=== PATIENT | male | born 1960 | race Caucasian/White ===

== ENCOUNTER → 2020-03-10 12:45 | Outpatient (CLI) | payer SELFPAY ==
--- NOTE | 2020-03-10 12:49 | US_ITS ---
APPROVED REPORT Exam Type: Lower Extremity Segmental Pressures Feather Renovator: Cierra Mcadams RVT Indications Claudication: Bilaterally Rest Pain: Bilaterally Current Smoker CLAUDICATION Risk Factors Hypertension Hyperlipidemia Current Smoker Pressures/Indices Right Indices Left Indices Brachial 124.00 mmHg Brachial 127.00 mmHg Low Thigh 101.00 mmHg 0.80 Low Thigh 64.00 mmHg 0.50 Calf 81.00 mmHg 0.64 Calf 67.00 mmHg 0.53 Ankle(PT) 100.00 mmHg 0.79 Ankle(PT) 62.00 mmHg 0.49 Ankle(DP) 78.00 mmHg 0.61 Ankle(DP) 58.00 mmHg 0.46 Digit 40.00 mmHg 0.31 Digit 28.00 mmHg 0.22 Findings RT ASIF:0.79 LT ASIF:0.49 RT TBI:0.31 LT TBI:0.22 DECREASED PULSES AT ALL LEVELS. DECREASED WAVEFORMS AT ALL LEVELS. Conclusion RT ASIF:0.79 LT ASIF:0.49 RT TBI:0.31 LT TBI:0.22 DECREASED PULSES AT ALL LEVELS. DECREASED WAVEFORMS AT ALL LEVELS. Moderate right and severe left arterial disease Electronically signed by : Zafar Smith MD 03/13/2020 16:59:15
== END ==
PROVIDERS: PCP Internal Medicine; Visit Provider Internal Medicine
DX: M79.605 Pain in left leg (principal); M79.604 Pain in right leg
CPT/HCPCS: 93923

== ENCOUNTER 2020-04-14 11:14 | Day surgery (SDC) | payer MEDICAID, SELFPAY ==
[2020-04-14] VITALS (10 sets, daily range): BP systolic 96–149; BP diastolic 60–93; PULSE 57–74; RESP 14–20; TEMP 36.6; O2SAT 97–98; BMI 21.4
--- NOTE | 2020-04-14 09:00 | IR_ITS ---
APPROVED REPORT Patient Location: Outpatient PROCEDURES Catheter placement in the abdominal aorta Abdominal aortography Repositioning of the catheter in the abdominal aorta Bilateral iliofemoral runoff INDICATION Abnormal ASIF 0.40.7 left and right respectively, Peripheral artery disease, [place] class III claudication Informed consent was obtained prior to the procedure. COMPLICATIONS none Estimated Blood Loss: less than 10 mls TECHNIQUE 1% lidocaine used anesthetize the right groin the right femoral artery was accessed via the Salinger technique and a 5 Swedish sheath was placed in the right femoral artery. The pigtail catheter was advanced into the abdominal aorta and abdominal aortography was performed. The catheter was then repositioned followed by bilateral iliofemoral runoff. At the end of the procedure the apparatus was removed the sheath was removed good hemostasis was achieved using manual pressure patient was transferred to the postop holding area in stable condition ANGIOGRAPHIC RESULTS The right renal artery singular and has a proximal 20% stenosis Left renal artery singular normal Mesenteric arteries are grossly normal The infrarenal abdominal aorta has a bilobed bar complex aneurysmal dilatation. The right common iliac artery has an ostial proximal 10 to 20% stenosis followed by a patent right external iliac artery with 30% stenoses. The right internal iliac artery has atheromatous plaque which is severe in the distal segment but is still patent. The right common femoral artery is small caliber but patent the right profunda femoris artery is patent the right superficial femoral artery is moderately atheromatous with diffuse 50 to 60% stenoses in its mid segment. It is then severely stenosed at Eugene's canal but does remain patent into the popliteal artery which has proximal 70% stenoses as well as mid vessel 70% stenoses. Distally there is two-vessel runoff from the anterior tibialis artery and the peroneal artery while the posterior tibialis artery is occluded The left common iliac artery is widely patent while the left internal iliac artery has 30% proximal stenoses with 80% distal stenoses. The left external iliac artery is widely patent with mild disease which extends into the common femoral artery. The stenoses are less than 10 to 20%. The left profunda femoris artery is normal. The left superficial femoral artery is severely diseased in its ostial and proximal segment with diffuse high-grade stenoses. At Eugene's canal the SFA is occluded and then reconstitutes in the mid popliteal level from 2 collaterals one from the SFA and one from the profunda femoris artery. The left popliteal artery is patent small caliber but has 50% mid vessel stenoses. Distally the posterior tibialis artery is widely patent the anterior tibialis artery is proximally occluded and the peroneal artery is patent in its proximal mid segment but terminates prior to entry into the left foot IMPRESSION Infrarenal abdominal aorta as described above Bilateral severe SFA stenoses and small caliber SFA vessels with severe diffuse disease as described above Two-vessel runoff below the knee on the right side 1-1/2 vessel runoff below the knee on the left side PLAN 1. Abdominal aortic ultrasound is required to specifically quantitate the size of the infrarenal abdominal aorta 2. I strongly recommend medical management at this time. Patient needs to stop tobacco usage and develop an aggressive risk factor modification and physical therapy protocol. 3. LDL less than 55 4. Recommend Xarelto 2.5 twice daily plus aspirin 81 mg daily 5. Although the bilateral SFA arteries can be percutaneously opened
[2020-04-14 11:40] LABS: Basophils % 0.4 % (0.1-2.0); Eosinophils # 0.2 K/mm3 (0.0-0.4); Eosinophils % 2.1 % (0.1-12.0); Hematocrit 43.2 % (42.0-52.0); Hemoglobin 14.5 g/dL (14.1-18.0); Lymphocytes # 2.1 K/mm3 (0.7-4.5); Lymphocytes % 21.4 % (10-50); Mean Corpuscular HGB Conc 33.7 g/dL (31.8-35.4); Mean Corpuscular Hemoglobin 31.1 pg (27.0-31.2); Mean Corpuscular Volume 92.4 fl (80-94); Mean Platelet Volume 8.8 fl (7.4-10.4); Monocytes # 0.7 K/mm3 (0.1-1.0); Monocytes % 7.1 % (1.7-9.3); Neutrophils # 6.9 K/mm3 (1.8-7.8); Platelet Count 217 K/mm3 (142-424); Red Blood Count 4.67 M/mm3 (4.60-6.20); Red Cell Distribution Width 13.8 % (11.5-17.5)
[2020-04-14 11:47] LABS: Blood Urea Nitrogen 12 mg/dl (9-20); Calcium 9.7 mg/dl (8.4-10.2); Carbon Dioxide 29 mmol/L (22.0-30.0); Chloride 101 mmol/L (98-107); Creatinine Clearance Estimated 70 mL/min (50-200); Estimated Glomerular Filt Rate 76 ml/min (>60); GFR (African American) 92 ML/MIN (>60); Glucose 135 mg/dl (74-100); Sodium 141 mmol/L (136-145)
== END 2020-04-14 15:09 | disposition home or self-care (01) ==
LOC: CATHLAB 11:14
PROVIDERS: PCP Internal Medicine; Visit Provider Internal Medicine
DX: I70.223 Atherosclerosis of native arteries of extremities with rest pain, bilateral legs (principal); R06.00 Dyspnea, unspecified; R94.31 Abnormal electrocardiogram [ECG] [EKG]; Z72.0 Tobacco use; I10 Essential (primary) hypertension; E78.5 Hyperlipidemia, unspecified; Z79.01 Long term (current) use of anticoagulants; Z79.82 Long term (current) use of aspirin
CPT/HCPCS: 36247; 75716; 80048; 85025; 99152; C1725; C1769; C1894; J1644; Q9966

== ENCOUNTER → 2020-04-19 07:58 | Outpatient (CLI) | payer MEDICAID, SELFPAY ==
--- NOTE | 2020-04-19 08:02 | US_ITS ---
PROCEDURE: US AORTA CLINICAL INDICATION: aorta aneurysm COMPARISON: CT ABDPELW CT ABD PELVIS W/ CONTRAST from 02/29/2016 XA CL BOLUS LEANNA AORTAGRAM BI from 04/14/2020 FINDINGS: There is fusiform dilatation of the mid and lower abdominal aorta measuring to 3 cm in maximum transverse diameter. There is calcific plaque present in the abdominal aorta along with mural thrombus.. Proximal common iliacs are unremarkable. IMPRESSION: 3 cm abdominal aortic aneurysm with mural thrombus and calcific plaque noted Consider CT a of aorta for more thorough evaluation. Dictated b Zafar Smith MD 04/19/2020 15:24 Zafar Smith MD in [place] 04/19/2020 15:24
== END ==
PROVIDERS: PCP Internal Medicine; Visit Provider Internal Medicine
DX: I71.9 Aortic aneurysm of unspecified site, without rupture (principal)
CPT/HCPCS: 76770

== ENCOUNTER → 2020-04-28 07:17 | Outpatient (CLI) | payer MEDICAID, SELFPAY ==
--- NOTE | 2020-04-28 | CA_ITS ---
APPROVED REPORT Exam: Pharmacologic Technologist: Apolonia Nascimento, Ht: 5 ft 8 in Wt: 141 lbs BSA: 1.76 m2 HR: 57 bpm BP: 133/74 mmHg Rhythm: SINUS TIFFANY,ST-T ABNS INFERIORLY AND LATERALLY Medical History Medical History: HTN, Hyperlipidemia Medications: Asa,,,,, Atorvastatin,,,,, Lisinopril/HCTZ,,,,, Plavix,,,,, Allergies: No known drug allergies Cardiac Risk Factors: HTN, Hyperlipidemia, Smoking Stress Test Details Test: LEXISCAN HR Resting HR: 59 bpm Max Heart Rate (APMHR): 159 bpm Max HR Achieved: 85 bpm Target HR (85% APMHR): 135 bpm % of APMHR: 53 Recovery HR: 73 bpm BP Resting BP: 133.0/74.0 mmHg Max BP: 137.0/65.0 mmHg Recovery BP: 130.0/59.0 mmHg ECG Resting ECG: SINUS TIFFANY,ST-T ABNS INFERIORLY AND LATERALLY Clinical Exercise duration: 04:23 min Highest Stage Achieved: Stress ECG Conclusion DURING INFUSION PATIENT HAD SOA AND MALAISE. NO CHEST PAIN. NO ARRHYTHMIAS/ECTOPY. NO SIGNIFICANT ST-T CHANGES. UNREMARKABLE LEXISCAN STRESS. MYOVIEW IMAGES REPORTED SEPARATELY Test Summary REST . . . . . . . Sitting REST 07:25 . . 59 . 133/ 74 . . Stage 1 . . . . . . . Cardiolite injected Stage 1 01:00 . . 77 . . . . Stage 2 01:00 . . 83 . 134/ 66 . . Stage 3 01:00 . . 79 . 137/ 65 . . Stage 4 01:00 . . 79 . 121/ 70 . . Stage 4 01:23 . . 71 . 120/ 71 . Stop exercise at 04:23 RECOVERY 01:00 . . 73 . . . . RECOVERY 02:00 . . 72 . 130/ 59 . . RECOVERY 03:00 . . 68 . 127/ 55 . . RECOVERY 04:00 . . 66 . 117/ 59 . . RECOVERY 04:13 . . 66 . 117/ 59 . . Electronically signed by : Rik Varela, 04/28/2020 12:02:18
--- NOTE | 2020-04-28 07:18 | NM_ITS ---
APPROVED REPORT Exam: Nuclear Stress Test Indication: HTN, HYPERLIPIDEMIA, TOB USE, SOB, FATIGUE Patient Location: Outpatient Stress Tech: Jamila Azam CT Tech:Bouchra Maurer ENEIDA RT (R)(N)(M) Ht: 5 ft 8 in Wt: 145 lbs HR: 57 bpm BP: 133/74 mmHg BSA: 1.78 m2 BMI: 22.0 History: HTN, HYPERLIPIDEMIA, TOB USE, SOB, FATIGUE Procedure: Patient received a 0.4 mg of intravenous Lexiscan, resting heart rate 57 bpm, resting blood pressure 133/74 mmHg, with Lexiscan maximum heart rate achived was 84 bpm which is Less than 85 % of the maximum predicted heart rate and blood pressure was 134/66 mmHg. With Lexiscan, patient denied any complaint of chest pain. Electrocardiogram Resting electrocardiogram showed sinus rhythm nonspecific ST-T changes, with Lexiscan there is less than 1.[address] segment depression noted from the baseline EKG. The EKG portion of the Lexiscan is nondiagnostic. Cardiac Stress and Resting SPECT Images: Cardiac Stress and Resting SPECT images were obtained using technetium 99m Myoview 31.3 mCi stress and 10.03 mCi at rest. Gated SPECT for analysis of segmental wall motion and calculation of the ejection fraction also done. Cardiac stress and resting SPECT images show decreased tracer activity in the inferior and inferior apical wall which improves on the resting images suggestive of reversible ischemia, computer derived ejection fraction is 64% with no regional wall motion abnormality, right ventricle is normal size and contractility. Conclusion: 1. The EKG portion of the Lexiscan is nondiagnostic. 2. Scintigraphic evidence of reversible ischemia involving the inferior and inferior apical wall, computer derived ejection fraction is 64% with no regional wall motion abnormality, right ventricle is normal size and contractility. 3. Abnormal Lexiscan Myoview study. Electronically signed by : Rik Varela, 04/28/2020 12:06:43
--- NOTE | 2020-04-28 08:03 | CA_ITS ---
APPROVED REPORT EXAM: Comprehensive 2D, Doppler, and color-flow Echocardiogram Fusion Juncture Grinder: Cierra Mcadams RVT Ht: 5 ft 8 in Wt: 141lbs BSA: 1.76 BP: 131/57 mmHg Indications: SOA,HTN,HLD,SMOKER,ABN EKG,PVD Echo Enhancing Agent Indication: Endocardial border delineation Agent(s) / Amount(s) Used: Definity 1 cc 2D Dimensions LVOT 1.63 cm (M/F) 1.5-2.5 M-Mode Dimensions RVDd 2.63 cm (0.9-2.6) LVDd 3.90 cm (3.5-5.7) LVDs 1.40 cm (3.5-5.7) IVSd 1.06 cm (0.6-1.1) PWd 0.81 cm (0.6-1.1) EF (Teich) 92.30% FS 64.10% EDV (Teich) 65.90 mL ESV (Teich) 5.10 mL LV Diastology E/A Ratio 0.90 Mitral Valve MV A Velocity 91.00 (40-130 cm/s) Left Ventricle Left atrium is mildly enlarged, left ventricle is normal size, mild concentric left ventricular hypertrophy, visually estimated ejection fraction 55% with no regional wall motion abnormality, grade 1 diastolic dysfunction seen without tissue Doppler evidence of raise left atrial pressure. Right Ventricle Right atrium and right ventricular normal size and contractility. Aortic Valve Valve is thickened and calcified without aortic stenosis or aortic insufficiency. Mitral Valve Mitral valve is minimally thickened, there is no mitral stenosis, there is mild mitral regurgitation. Tricuspid Valve Tricuspid valve is grossly normal, there is mild tricuspid regurgitation, tricuspid regurgitation jet velocity is inadequate for calculation of the right ventricular systolic pressure. Pulmonic Valve Pulmonic valve is poorly visualized. Great Vessels Aortic root is normal size. Pericardium No significant pericardial effusion noted. Conclusion 1. Mildly enlarged left atrium, normal left ventricular size, mild concentric left ventricular hypertrophy, visually estimated ejection fraction 55% with no regional wall motion abnormality, grade 1 diastolic dysfunction seen without tissue Doppler evidence of raise left atrial pressure. 2. Thickened and calcified aortic valve without aortic stenosis or aortic insufficiency. 3. Mild mitral and tricuspid regurgitation. 4. No significant pericardial effusion noted. Electronically signed by : Rik Varela, 04/28/2020 13:41:14
== END ==
PROVIDERS: PCP Internal Medicine; Visit Provider Urology
DX: R06.00 Dyspnea, unspecified (principal); R94.31 Abnormal electrocardiogram [ECG] [EKG]; I73.9 Peripheral vascular disease, unspecified; R68.89 Other general symptoms and signs; Z72.0 Tobacco use
CPT/HCPCS: 78452; 93017; 93306; A9502; J2785; Q9957

== ENCOUNTER → 2020-05-03 10:05 | Outpatient (CLI) | payer MEDICAID, SELFPAY ==
--- NOTE | 2020-05-03 10:05 | CT_ITS ---
Procedure: CT ANGIO ABDOMEN CLINICAL HISTORY: AAA AAA SOA,,HX OF DVT'S COMPARISON: CT ABDPELW CT ABD PELVIS W/ CONTRAST from 02/29/2016 TECHNIQUE: IV Contrast: 100ml Optiray 350 Axial images obtained with sagittal and coronal reformats. All CT scans at the facility use one or more dose reduction, viz: automated exposure control, ma/kV adjustment per patient size (including targeted exams where dose is matched to indication, i.e. head), or iterative reconstruction technique. FINDINGS: There is a infrarenal abdominal aortic aneurysm. This measures up to 2.8 cm transverse and 2.3 cm AP there is mild amount of mural thrombus with some ulceration of the thrombus within the abdominal aortic aneurysm. The aneurysm ends at the bifurcation. No aneurysmal dilatation of the common iliacs. No retroperitoneal hemorrhage. The celiac and SMA have an unremarkable appearance. Calcific plaque is present at the ostium of the right renal artery but no significant stenosis is evident. The left renal artery has an unremarkable appearance. There are post cholecystectomy changes. The left adrenal gland is slightly enlarged but maintains an adrenal form shape. There is mild gaseous distention of the transverse colon and a moderate amount of retained colonic feces in the cecum and ascending colon. IMPRESSION: 2.8 cm infrarenal abdominal aortic aneurysm with a moderate amount of mural thrombus and scattered areas of ulceration within the thrombus. Dictated by: Zafar Smith MD 05/05/2020 11:39 Zafar Smith MD in [facility] 05/05/2020 11:39
[2020-05-03 10:57] LABS: Blood Urea Nitrogen 16 mg/dl (9-20); Estimated Glomerular Filt Rate 68 ml/min (>60); GFR (African American) 82 ML/MIN (>60)
== END ==
PROVIDERS: PCP Internal Medicine; Visit Provider Urology
DX: I71.4 Abdominal aortic aneurysm, without rupture (principal)
CPT/HCPCS: 36415; 74175; 82565; 84520; Q9967

== ENCOUNTER 2020-05-16 08:06 | Day surgery (SDC) | payer MEDICAID, SELFPAY ==
[2020-05-16] VITALS (18 sets, daily range): BP systolic 88–172; BP diastolic 51–90; PULSE 50–70; RESP 16–20; TEMP 36.5–36.8; O2SAT 92–100; BMI 21.7
--- NOTE | 2020-05-16 | IR_ITS ---
APPROVED REPORT Patient Location: Outpatient Financial Planning Assistant: ENEIDA Maki RT (R) PROCEDURES Left heart catheterization Left ventriculogram Selective coronary angiogram INDICATION Angina pectoris class III, Coronary artery disease, Abnormal Myoview Informed consent was obtained prior to the procedure. COMPLICATIONS NONE Estimated Blood Loss: LESS THAN 10 MLS TECHNIQUE One percent lidocaine used to anesthetize the right anterior aspect of the wrist. The right radial artery was accessed via the Seldinger technique. A 6 Turkish sheath was placed in the right radial artery. 2.5 mg of verapamil, 800 mcg of nitroglycerin, 1mg Lidocaine and 5000 U Heparin were given through the arterial sheath. The trap catheter was also used to perform left heart catheterization, left ventriculogram and selective coronary angiogram. At the end of the procedure the sheath was removed good hemostasis was achieved using Traclet band, patient was transferred to the postop holding area in stable condition. ANGIOGRAPHIC RESULTS The left main artery Has an ostial 80% stenosis and a distal 30% stenosis The left anterior descending artery Has proximal 80% stenosis mid vessel 80% stenosis followed by a mid vessel 90% stenosis. Large first diagonal artery has mild to moderate [id number] 20 to 30% plaque The circumflex artery Is nondominant giving rise to a solitary obtuse marginal artery which has a 50% mid vessel stenosis The right coronary artery Is dominant ostially occluded and fills via [id number] collaterals The BARRIOS ventriculogram reveals Normal 65% The left ventricular end-diastolic pressure 10 mmHg IMPRESSION Severe three-vessel coronary disease as described above Normal ejection fraction Normal left ventricular end-diastolic pressure PLAN 1. Patient will be referred to [facility] for CABG this week 2. Continue aggressive risk factor modification Electronically signed by : Maynor Rhoades, 05/16/2020 11:49:23
[2020-05-16 08:48] LABS: Basophils % 0.4 % (0.1-2.0); Eosinophils # 0.3 K/mm3 (0.0-0.4); Eosinophils % 3.6 % (0.1-12.0); Hematocrit 44.1 % (42.0-52.0); Hemoglobin 14.8 g/dL (14.1-18.0); Lymphocytes % 26.6 % (10-50); Mean Corpuscular HGB Conc 33.5 g/dL (31.8-35.4); Mean Corpuscular Hemoglobin 30.9 pg (27.0-31.2); Mean Corpuscular Volume 92.2 fl (80-94); Mean Platelet Volume 8.3 fl (7.4-10.4); Monocytes # 0.7 K/mm3 (0.1-1.0); Monocytes % 9.7 % (1.7-9.3); Neutrophils # 4.5 K/mm3 (1.8-7.8); Neutrophils % 59.7 % (37.0-80.0); Platelet Count 218 K/mm3 (142-424); Red Blood Count 4.79 M/mm3 (4.60-6.20); Red Cell Distribution Width 12.7 % (11.5-17.5); White Blood Count 7.5 K/mm3 (4.8-10.8)
[2020-05-16 08:54] LABS: Chloride 102 mmol/L (98-107); Potassium 3.7 mmoL/L (3.5-5.1); Sodium 142 mmol/L (136-145)
[2020-05-16 08:56] LABS: Blood Urea Nitrogen 14 mg/dl (9-20); Creatinine Clearance Estimated 55 mL/min (50-200); Estimated Glomerular Filt Rate 56 ml/min (>60); GFR (African American) 68 ML/MIN (>60)
[2020-05-16 08:57] LABS: Anion Gap 13.7 mEq/L (5-15); Calcium 9.8 mg/dl (8.4-10.2); Carbon Dioxide 30 mmol/L (22.0-30.0); Glucose 139 mg/dl (74-100)
[2020-05-16 09:15] LABS: Coronavirus 19 IgG Antibody Negative (Negative); Coronavirus 19 IgM Antibody Negative (Negative)
--- NOTE | 2020-05-16 17:56 | PC.NURSE ---
PATIENT A7O X4, LUNGS CLEAR, PULSES EQUAL. RADIAL CATH SITE, CLEAN, DRY AND INTACT. PATIENT ATE DINNER AND TOLERATED WELL. AWAITING BED AT . NO OTHER CONCERNS AT THIS TIME.
--- NOTE | 2020-05-16 20:53 | PC.NURSE ---
PT A&OX4. NO C/O THUS FAR. TOLERATING RA WELL. UP INDEPENDENTLY IN ROOM. REPORT CALLED TO [facility] AT [facility]. SHALONDA CALLED AT THIS TIME. WILL CONTINUE TO MONITOR PT.
--- NOTE | 2020-05-16 20:56 | PC.NURSE ---
[facility] NOTIFIED OF TRANSFER OF THIS PT TO [facility].
--- NOTE | 2020-05-16 21:27 | PC.NURSE ---
patient left with [facility] @ 21:27.
== END 2020-05-16 21:27 | disposition short-term general hospital (02) ==
LOC: CATHLAB 08:07 → 2ND 14:15
PROVIDERS: PCP Internal Medicine; Visit Provider Internal Medicine
DX: I25.118 Atherosclerotic heart disease of native coronary artery with other forms of angina pectoris (principal); I10 Essential (primary) hypertension; I70.203 Unspecified atherosclerosis of native arteries of extremities, bilateral legs; Z72.0 Tobacco use; Z79.82 Long term (current) use of aspirin; Z79.02 Long term (current) use of antithrombotics/antiplatelets; Z79.899 Other long term (current) drug therapy
CPT/HCPCS: 80048; 85025; 86328; 93458; 99152; C1725; C1769; J1644; Q9967

== ENCOUNTER → 2020-07-11 15:23 | Outpatient (CLI) | payer MEDICAID, SELFPAY ==
[2020-07-11 16:21] LABS: Blood Urea Nitrogen 12 mg/dl (9-20); Estimated Glomerular Filt Rate 62 ml/min (>60); GFR (African American) 74 ML/MIN (>60)
== END ==
PROVIDERS: Visit Provider Internal Medicine
DX: Z01.818 Encounter for other preprocedural examination (principal)
CPT/HCPCS: 36415; 82565; 84520

== ENCOUNTER → 2020-07-12 13:15 | Outpatient (CLI) | payer MEDICAID, SELFPAY ==
--- NOTE | 2020-07-12 13:16 | CT_ITS ---
Procedure: CT ANGIO NECK CLINICAL HISTORY: Carotid artery disease, carotid artery stenosis COMPARISON: No exams were available for comparison TECHNIQUE: IV Contrast: 100ml Optiray 350 Axial images obtained with sagittal and coronal reformats. All CT scans at the facility use one or more dose reduction, viz: automated exposure control, ma/kV adjustment per patient size (including targeted exams where dose is matched to indication, i.e. head), or iterative reconstruction technique. FINDINGS: There has been a prior CABG. The origin of the great vessels have an unremarkable appearance. There is some eccentric soft plaque within the aortic arch laterally there is 50 percent stenosis involving the proximal left subclavian artery. Right common carotid: Unremarkable. There is a severe mount of calcific plaque at the ostium of the right ICA of approximately 90 percent. There is a small amount of eccentric calcific plaque just cephalad to this region causing approximately 20 percent stenosis. The upper cervical portion of the right carotid is unremarkable. Calcific plaque is present involving the cavernous portion of the right ICA but without significant stenosis. The left common carotid is unremarkable. Calcific plaque is present in the left bulb and proximal ICA with 60 percent stenosis of the ostium of the left ICA the. The ICA cephalad to this region is unremarkable. Calcific plaque is present within the cavernous portion of the left ICA without significant stenosis. There is 60 percent smooth segment stenosis of vomiting the ostium of the right vertebral artery. 50 percent stenosis involves the ostium of the left vertebral artery. Nonvascular prior CABG. Scattered small nodes are present in the neck. IMPRESSION: 1. Severe stenosis of the ostium of the right ICA the 90 percent secondary to calcific plaque 2. Moderate to severe stenosis of the left ICA of 60 percent 3. 60 percent stenosis of the ostium of the right vertebral and 50 percent stenosis of the ostium of the left vertebral. 4. Eccentric soft plaque is present in the aortic arch laterally Dictated by: Zafar Smith MD 07/13/2020 12:22 Zafar Smith MD in [facility] 07/13/2020 12:22
== END ==
PROVIDERS: PCP Internal Medicine; Visit Provider Urology
DX: R06.00 Dyspnea, unspecified (principal); I65.23 Occlusion and stenosis of bilateral carotid arteries; I73.9 Peripheral vascular disease, unspecified; I25.10 Atherosclerotic heart disease of native coronary artery without angina pectoris; E78.5 Hyperlipidemia, unspecified; I10 Essential (primary) hypertension; Z72.0 Tobacco use; Z95.1 Presence of aortocoronary bypass graft
CPT/HCPCS: 70498; Q9967

== ENCOUNTER → 2020-07-14 13:53 | Outpatient (CLI) | payer MEDICAID, SELFPAY ==
[2020-07-14 14:32] LABS: Basophils # 0.1 K/mm3 (0-0.2); Basophils % 0.7 % (0.1-2.0); Eosinophils # 0.2 K/mm3 (0.0-0.4); Eosinophils % 3.4 % (0.1-12.0); Hematocrit 46.6 % (42.0-52.0); Hemoglobin 14.6 g/dL (14.1-18.0); Lymphocytes # 2.1 K/mm3 (0.7-4.5); Lymphocytes % 29.1 % (10-50); Mean Corpuscular HGB Conc 31.4 g/dL (31.8-35.4); Mean Corpuscular Hemoglobin 28.2 pg (27.0-31.2); Mean Corpuscular Volume 89.8 fl (80-94); Mean Platelet Volume 8.6 fl (7.4-10.4); Monocytes # 0.7 K/mm3 (0.1-1.0); Monocytes % 10.3 % (1.7-9.3); Neutrophils % 56.5 % (37.0-80.0); Platelet Count 165 K/mm3 (142-424); Red Blood Count 5.19 M/mm3 (4.60-6.20); Red Cell Distribution Width 13.2 % (11.5-17.5); White Blood Count 7.1 K/mm3 (4.8-10.8)
[2020-07-14 15:28] LABS: Anion Gap 13.5 mEq/L (5-15); Blood Urea Nitrogen 11 mg/dl (9-20); Calcium 9.9 mg/dl (8.4-10.2); Carbon Dioxide 32 mmol/L (22.0-30.0); Chloride 101 mmol/L (98-107); Estimated Glomerular Filt Rate 56 ml/min (>60); GFR (African American) 68 ML/MIN (>60); Glucose 153 mg/dl (74-100); Potassium 4.5 mmoL/L (3.5-5.1); Sodium 142 mmol/L (136-145)
[2020-07-14 16:33] LABS: Coronavirus 19 IgG Antibody Negative (Negative); Coronavirus 19 IgM Antibody Negative (Negative)
== END ==
PROVIDERS: Visit Provider Internal Medicine
DX: Z01.818 Encounter for other preprocedural examination (principal); I25.10 Atherosclerotic heart disease of native coronary artery without angina pectoris
CPT/HCPCS: 36415; 80048; 85025; 86328

== ENCOUNTER 2020-07-17 09:03 | Day surgery (SDC) | payer MEDICAID, SELFPAY ==
[2020-07-17] VITALS (20 sets, daily range): BP systolic 95–148; BP diastolic 53–92; PULSE 50–64; RESP 16–19; TEMP 36.8; O2SAT 97–100; BMI 20.9
--- NOTE | 2020-07-17 07:12 | IR_ITS ---
APPROVED REPORT Patient Location: Outpatient PROCEDURES Catheter placement in the right vertebral artery Right vertebral artery selective angiogram Catheter placement in the left vertebral artery Left vertebral artery selective angiogram Catheter placement left subclavian artery Selective left subclavian artery angiogram Catheter placement in the right carotid artery Right internal carotid artery selective angiogram Catheter placed in the left carotid artery Left internal carotid artery selective angiogram Right intracerebral carotid artery angiogram Left intracerebral carotid artery angiogram INDICATION Severe carotid artery stenosis, Preoperative evaluation for carotid artery revascularization, History of coronary bypass surgery with known LEVY graft to the LAD, Left subclavian artery stenosis Informed consent was obtained prior to the procedure. COMPLICATIONS NONE Estimated Blood Loss: LESS THAN 10 ML TECHNIQUE One percent lidocaine was used to anesthetize the right groin. The right femoral artery was accessed via the Seldinger technique. A 5-Maltese sheath was placed in the right femoral artery. The JR-4 catheter was used to cannulate the above arteries and perform selective and indirect angiography. At the end of the procedure the apparatus was removed the patient transferred to the postop holding area in stable condition for sheath removal. ANGIOGRAPHIC RESULTS The right vertebral artery has an ostial 40% stenosis but is otherwise widely patent with excellent antegrade flow into the basilar artery The left vertebral artery has an ostial 30 to 40% stenosis but is otherwise widely patent with excellent antegrade flow into the basilar artery Right common carotid artery is widely patent and gives rise to the right internal carotid artery which has an ostial proximal 90% stenosis. Right intracerebral arteries are free of atherosclerotic plaque or aneurysmal dilatation Left common carotid artery is widely patent and gives rise to the left internal carotid artery which has a proximal 50% stenosis Left intracerebral arteries are free of atherosclerotic plaque or aneurysmal dilatation Left subclavian artery has an eccentric 60% plaque/stenosis IMPRESSION Severe right internal carotid artery stenosis Mild bilateral vertebral artery stenosis as described above Severe left subclavian artery stenosis which is proximal to the takeoff of the left internal mammary artery which supplies the LAD PLAN 1. Patient should be brought back to the [facility] and scheduled for left subclavian artery stenting prior to undergoing right internal carotid artery revascularization 2. Avoidance of tobacco products 3. LDL less than 55 4. Control of associated risk factors Electronically signed by : Maynor Rhoades, 07/17/2020 10:22:35
== END 2020-07-17 13:44 | disposition home or self-care (01) ==
LOC: CATHLAB 09:04
PROVIDERS: PCP Internal Medicine; Visit Provider Internal Medicine
DX: I25.10 Atherosclerotic heart disease of native coronary artery without angina pectoris (principal); Z95.1 Presence of aortocoronary bypass graft; I65.23 Occlusion and stenosis of bilateral carotid arteries; Z79.01 Long term (current) use of anticoagulants; Z72.0 Tobacco use; I70.222 Atherosclerosis of native arteries of extremities with rest pain, left leg; I65.03 Occlusion and stenosis of bilateral vertebral arteries; Z79.899 Other long term (current) drug therapy
CPT/HCPCS: 36224; 36228; 99152; C1725; C1769; C1894; J1644; Q9967

== ENCOUNTER 2020-07-20 09:09 | Day surgery (SDC) | payer MEDICAID, SELFPAY ==
[2020-07-20] VITALS (36 sets, daily range): BP systolic 128–188; BP diastolic 57–100; PULSE 47–66; RESP 16–20; TEMP 36.8; O2SAT 95–100; BMI 21.2
--- NOTE | 2020-07-20 | IR_ITS ---
APPROVED REPORT Patient Location: Outpatient PROCEDURES Stent deployment to the left subclavian artery INDICATION Left subclavian artery stenosis, History of coronary bypass surgery with patent LEVY to the LAD distal to the left subclavian artery stenosis Informed consent was obtained prior to the procedure. COMPLICATIONS none Estimated Blood Loss: less than 10 mls TECHNIQUE 1% lidocaine used anesthetize the right groin the right femoral artery was accessed via the Salinger technique and a long angled 7 Vietnamese sheath was placed in the right femoral artery. Therapeutic heparin was administered. Was used to cannulate the left subclavian artery and the wire was placed distally. An 8 mm x 27 mm balloon mounted bare-metal stent was deployed at 12 jyoti reducing the severe stenosis to less than 10%. Excellent angiographic results were obtained at the end of the procedure the apparatus was removed the patient was transferred to the postop holding her stable condition for postoperative care and sheath removal IMPRESSION Severe left subclavian artery stenosis with a patent LEVY distal to the stenosis Successful stenting of the left subclavian artery severe disease reduced to less than 10% with 1 bare-metal stent PLAN 1. Dual antiplatelet therapy for 1 month for bare-metal stent placement 2. Continue risk factor modification 3. LDL less than 55 4. Patient will be referred for carotid artery revascularization Electronically signed by : Maynor Rhoades, 07/20/2020 10:03:48
[2020-07-20 09:39] LABS: Basophils # 0.1 K/mm3 (0-0.2); Basophils % 0.7 % (0.1-2.0); Eosinophils # 0.3 K/mm3 (0.0-0.4); Eosinophils % 4.6 % (0.1-12.0); Hematocrit 42.9 % (42.0-52.0); Hemoglobin 13.2 g/dL (14.1-18.0); Lymphocytes # 1.6 K/mm3 (0.7-4.5); Lymphocytes % 23.2 % (10-50); Mean Corpuscular HGB Conc 30.8 g/dL (31.8-35.4); Mean Corpuscular Hemoglobin 27.6 pg (27.0-31.2); Mean Corpuscular Volume 89.7 fl (80-94); Mean Platelet Volume 7.8 fl (7.4-10.4); Monocytes # 0.6 K/mm3 (0.1-1.0); Monocytes % 9.1 % (1.7-9.3); Neutrophils # 4.2 K/mm3 (1.8-7.8); Neutrophils % 62.4 % (37.0-80.0); Platelet Count 134 K/mm3 (142-424); Red Blood Count 4.79 M/mm3 (4.60-6.20); Red Cell Distribution Width 13.3 % (11.5-17.5); White Blood Count 6.8 K/mm3 (4.8-10.8)
[2020-07-20 09:43] LABS: Chloride 103 mmol/L (98-107); Potassium 3.9 mmoL/L (3.5-5.1); Sodium 141 mmol/L (136-145)
[2020-07-20 09:46] LABS: Anion Gap 12.9 mEq/L (5-15); Blood Urea Nitrogen 8 mg/dl (9-20); Carbon Dioxide 29 mmol/L (22.0-30.0); Creatinine Clearance Estimated 63 mL/min (50-200); Estimated Glomerular Filt Rate 68 ml/min (>60); GFR (African American) 82 ML/MIN (>60)
[2020-07-20 09:47] LABS: Calcium 9.4 mg/dl (8.4-10.2); Glucose 128 mg/dl (74-100)
[2020-07-20 10:11] LABS: Coronavirus 19 IgG Antibody Negative (Negative); Coronavirus 19 IgM Antibody Negative (Negative)
[2020-07-20 12:58] LABS: CATHL Activated Clotting Time > 400 SEC (74-125)
--- NOTE | 2020-07-20 13:23 | HMH.PHACLD ---
Andrez Lugo has received discharge medication counseling on the following medications: PATIENT ALREADY TAKING ATORVASTATIN 20 MG HS, LISINOPRIL HCTZ 10/12.5 MG DAILY, METOPROLOL TARTRATE 25 MG BID, PLAVIX 75 MG DAILY, AND XARELTO 2.5 MG BID. MD NOT STARTING ASPIRIN PATIENT IS CURRENTLY TAKING XARELTO AT THIS TIME.
[2020-11-27 14:05] LABS: CATHL Activated Clotting Time 180 SEC (74-125)
== END 2020-07-20 16:47 | disposition home or self-care (01) ==
LOC: CATHLAB 09:10
PROVIDERS: PCP Internal Medicine; Visit Provider Internal Medicine
DX: I70.8 Atherosclerosis of other arteries (principal); I65.03 Occlusion and stenosis of bilateral vertebral arteries; I77.1 Stricture of artery; Z95.1 Presence of aortocoronary bypass graft; Z79.01 Long term (current) use of anticoagulants; I25.10 Atherosclerotic heart disease of native coronary artery without angina pectoris; I65.23 Occlusion and stenosis of bilateral carotid arteries; I70.222 Atherosclerosis of native arteries of extremities with rest pain, left leg
CPT/HCPCS: 37236; 80048; 85025; 85347; 86328; 99152; C1769; C1876; J1644; J2720; Q9967

== ENCOUNTER → 2021-02-20 10:42 | Outpatient (CLI) | payer OTHER, SELFPAY ==
--- NOTE | 2021-02-20 10:48 | XR_ITS ---
PROCEDURE: XR SHOULDER RT MIN 2V CLINICAL INDICATION: RT SHOULDER/UPPER ARM PAIN COMPARISON: No exams were available for comparison FINDINGS: No fracture or dislocation. No lytic or blastic change. There is normal mineralization. Joint spaces are well preserved. Prior median sternotomy and left subclavian artery stent placement Other findings:No significant subacromial stenosis. IMPRESSION: No acute findings. Dictated by: Zafar Smith MD 02/20/2021 11:06 Zafar Smith MD in [facility] 02/20/2021 11:06
== END ==
PROVIDERS: PCP Internal Medicine; Visit Provider Internal Medicine
DX: M25.511 Pain in right shoulder (principal); M79.601 Pain in right arm
CPT/HCPCS: 73030

== ENCOUNTER → 2021-05-25 14:12 | Outpatient (CLI) | payer OTHER, SELFPAY | PROVIDERS: Visit Provider Internal Medicine Gastroenterology | DX: Z01.812 Encounter for preprocedural laboratory examination (principal); Z20.822 Contact with and (suspected) exposure to COVID-19; Z12.11 Encounter for screening for malignant neoplasm of colon | CPT/HCPCS: C9803; U0003; U0005 ==

== ENCOUNTER 2021-05-28 11:44 | Day surgery (SDC) | payer OTHER, SELFPAY ==
[2021-05-24 11:09] VITALS: BMI 21.6
[2021-05-28 12:20] VITALS: BP 157/84; PULSE 58; RESP 18; TEMP 36.7; O2SAT 100
[2021-05-28 12:51] VITALS: O2SAT 100
--- NOTE | 2021-05-28 12:51 | HMH.ANESCL ---
[facility] Anesthesia Checklist - Patient Identification Patient Identification: Arm Band - Structural Data Admitted From: Home Planned Operative Procedure/s: colonoscopy Consent for Planned Operative Procedure(s) Verified: Yes Verified Documents: Surgical Consent, History and Physical - NPO Status Verified Time NPO: 00:00 - Additional verifications Anesthesia Reactions: No - Airway Assessment C-Spine Mobility Assessed: Yes (mp2) TMJ Mobility Assessed: Yes Dentition: Poor Dentition - Neurological Assessment Level of Consciousness: Awake, Alert - Anesthesia Plan Anesthesia Risk discussed: Yes Anesthesia Plan: Verified ASA Class: III Anesthesia Type: MAC [facility] History I have reviewed the patient's past medical history: Yes Medical History: Reports:: Coronary Artery Disease, Hyperlipidemia, Hypertension, Peripheral Artery Disease Denies:: Cancer, Diabetes Mellitus Type 1, Diabetes Mellitus Type 2, Internal Pacemaker, MRSA, Seizures *Have you ever received a pneumonia vaccine?: No *Have you received a flu vaccine this season?: No Anesthesia experience/problems:: nac Other Surgeries: Yes: Angiogram, Cardiac Catheterization, Hernia Repair. No: Pacemaker Amputation: No Fractures: No - *Social History Last grade of school completed: High school graduate Smoking Status: Current every day smoker # Packs/Day (cigarettes): 1 #Yrs smoked (if former smoker): 20 Smoking End Date: 2019 Alcohol Intake: never Substance Use Type: denies use *Occupational Status:: employed Housing: house Household Members: none *Travel in the last 8 weeks: None Family Hx:: Coronary Artery Disease, Cancer
--- NOTE | 2021-05-28 13:21 | HMH.PROC ---
[facility] Procedure Note Procedure Note:: Colonoscopy Procedure Report: Colonoscopy with cold snare polypectomy Endoscopist: Troy Mera II, MD Referring physician: Femi Lam MD Date of Procedure: May 28, 2021 Equipment: Olympus 190 variable stiffness pediatric colonoscope Sedation: MAC sedation Indication: Mr. Lugo is a 61-year-old gentleman who is here for screening colonoscopy. He has had chronic longstanding constipation. He was taken a stimulant laxative and stool softener for many years. Recently, he has been on Linzess 290 mcg p.o. daily which has helped. He reports no rectal bleeding, abdominal pain or weight loss. He reports no family history of colon cancer. His last colonoscopy was 12 years ago and was normal. Procedure: Prior to the procedure, a history and physical exam was performed, and patient's medications and allergies were reviewed. The risks, benefits and alternatives of the sedation and procedure were discussed with the patient. All questions were answered and informed consent was obtained. The patient was brought to the procedure room. Patient identification and proposed procedure were verified by the physician and the nurse. The patient was placed in a left lateral decubitus position and the scope was passed under direct vision. Throughout the procedure, the patient's blood pressure, pulse, and oxygen saturations were monitored continuously. The colonoscopy was accomplished without difficulty. The patient tolerated the procedure well. Findings: On digital rectal examination there was normal rectal tone. There were no external hemorrhoids. The colonoscope was introduced through the anal canal to the rectum and advanced to the cecum. The ileocecal valve and appendiceal orifice were identified. The scope was advanced a short distance into the ileum which appeared grossly normal. The scope was then withdrawn into the colon. The cecum and ascending colon were normal. There was increased luminal diameter throughout the right and left colon consistent with colonic dysmotility. There were 2 polyps (3 and 4 mm) in the transverse colon both of which were removed via cold snare polypectomy. There were no mucosal abnormalities identified. Upon retroflexion within the rectum there were grade 1-2 internal hemorrhoids.The preparation was fair throughout with [place] Preparation Score of 7 out of 9. The cecal time was 12 minutes. Impression: 1. Diminutive colonic polyps x2 2. Colonic dysmotility/colonic redundancy 3. Grade 1-2 internal hemorrhoids Plan: I will follow up the polyp pathology and recommend repeat colonoscopy again in 7-10 years based upon the polyp histology. I would continue Linzess (plus fiber) on a long-term daily maintenance basis.
[2021-05-28 13:23] VITALS: BP 118/42; PULSE 54; RESP 12; TEMP 36.2; O2SAT 100
[2021-05-28 13:33] VITALS: BP 98/59; PULSE 51; RESP 12; O2SAT 99
[2021-05-28 13:43] VITALS: BP 106/63; PULSE 49; RESP 16; O2SAT 99
[2021-05-28 13:53] VITALS: BP 117/49; PULSE 54; RESP 16; TEMP 36.2
== END 2021-05-28 13:54 | disposition home or self-care (01) ==
LOC: OUTP 11:49
PROVIDERS: PCP Internal Medicine; Visit Provider Internal Medicine Gastroenterology
PROC: 0DJD8ZZ Inspection of Lower Intestinal Tract, Via Natural or Artificial Opening Endoscopic (ICD-10-PCS; CPT 45378; principal; 2021-05-28 13:00)
DX: Z12.11 Encounter for screening for malignant neoplasm of colon (principal); K63.5 Polyp of colon; Q43.8 Other specified congenital malformations of intestine; K64.0 First degree hemorrhoids; I25.10 Atherosclerotic heart disease of native coronary artery without angina pectoris; E78.5 Hyperlipidemia, unspecified; I10 Essential (primary) hypertension; I73.9 Peripheral vascular disease, unspecified; Z72.0 Tobacco use; Z82.49 Family history of ischemic heart disease and other diseases of the circulatory system; Z80.9 Family history of malignant neoplasm, unspecified; Z79.899 Other long term (current) drug therapy
CPT/HCPCS: 45385

== ENCOUNTER → 2021-08-30 10:31 | Outpatient (CLI) | payer OTHER, SELFPAY ==
[2021-08-30 10:55] LABS: Basophils # 0.1 K/mm3 (0-0.2); Basophils % 0.6 % (0.1-2.0); Eosinophils # 0.3 K/mm3 (0.0-0.4); Eosinophils % 3.7 % (0.1-12.0); Hematocrit 47.4 % (42.0-52.0); Hemoglobin 15.4 g/dL (14.1-18.0); Lymphocytes # 1.9 K/mm3 (0.7-4.5); Lymphocytes % 21.5 % (10-50); Mean Corpuscular HGB Conc 32.5 g/dL (31.8-35.4); Mean Corpuscular Hemoglobin 29.2 pg (27.0-31.2); Mean Corpuscular Volume 89.9 fl (80-94); Mean Platelet Volume 8.4 fl (7.4-10.4); Monocytes # 0.6 K/mm3 (0.1-1.0); Monocytes % 7.3 % (1.7-9.3); Neutrophils # 5.8 K/mm3 (1.8-7.8); Neutrophils % 66.9 % (37.0-80.0); Platelet Count 178 K/mm3 (142-424); Red Blood Count 5.28 M/mm3 (4.60-6.20); Red Cell Distribution Width 12.9 % (11.5-17.5); White Blood Count 8.6 K/mm3 (4.8-10.8)
[2021-08-30 11:22] LABS: Chloride 107 mmol/L (98-107); Sodium 145 mmol/L (136-145)
[2021-08-30 11:23] LABS: Potassium 4.5 mmoL/L (3.5-5.1)
[2021-08-30 11:25] LABS: Alanine Aminotransferase 20 U/L (12-78); Alkaline Phosphatase 70 U/L (38-126); Anion Gap 13.5 mEq/L (5-15); Aspartate Amino Transferase 34 U/L (17-59); Bilirubin,Direct 0.2 mg/dl (0.0-0.4); Bilirubin,Indirect 0.2 mg/dL (0.0-0.9); Bilirubin,Total 0.4 mg/dl (0.2-1.3); Bilirubin,Unconjugated 0.2 mg/dL (0.0-1.1); Blood Urea Nitrogen 16 mg/dl (9-20); Carbon Dioxide 29 mmol/L (22.0-30.0); Cholesterol 138 mg/dl (140-200); Estimated Glomerular Filt Rate 68 ml/min (>60); GFR (African American) 82 ML/MIN (>60); Triglycerides 161 mg/dl (30-150); VLDL Cholesterol 32 mg/dL (0-40)
[2021-08-30 11:26] LABS: Albumin Level 4.3 g/dl (3.5-5.0); Calcium 9.4 mg/dl (8.4-10.2); Chol/HDL Ratio 3.2 (1-3.5); Glucose 90 mg/dl (74-100); HDL Cholesterol 43 mg/dl (40-60); Total Protein,Serum 6.6 g/dl (6.3-8.2)
[2021-08-30 11:37] LABS: Direct LDL Cholesterol 66.28 mg/dL (100-129)
[2021-08-30 11:42] LABS: Free T4 (Free Thyroxine) 0.85 ng/dl (0.78-2.19)
[2021-08-30 11:57] LABS: Thyroid Stimulating Hormone 0.89 uIU/mL (0.465-4.68)
== END ==
PROVIDERS: Visit Provider Physician Assistant
DX: I25.10 Atherosclerotic heart disease of native coronary artery without angina pectoris (principal); I10 Essential (primary) hypertension; E78.5 Hyperlipidemia, unspecified; I65.29 Occlusion and stenosis of unspecified carotid artery; I73.9 Peripheral vascular disease, unspecified; R94.31 Abnormal electrocardiogram [ECG] [EKG]; Z95.1 Presence of aortocoronary bypass graft
CPT/HCPCS: 36415; 80048; 80061; 80076; 84439; 84443; 85025

== ENCOUNTER → 2022-03-14 10:31 | Outpatient (CLI) | payer OTHER, SELFPAY ==
[2022-03-14 12:20] LABS: Blood Urea Nitrogen 8 mg/dl (9-20); Estimated Glomerular Filt Rate 68 ml/min (>60); GFR (African American) 82 ML/MIN (>60)
== END ==
PROVIDERS: PCP Internal Medicine; Visit Provider Internal Medicine Gastroenterology
DX: I71.4 Abdominal aortic aneurysm, without rupture (principal); R63.4 Abnormal weight loss; R11.2 Nausea with vomiting, unspecified
CPT/HCPCS: 36415; 82565; 84520

== ENCOUNTER → 2022-03-22 08:36 | Outpatient (CLI) | payer OTHER, SELFPAY ==
--- NOTE | 2022-03-22 08:43 | CT_ITS ---
FINAL REPORT TECHNIQUE: After the administration of oral and intravenous contrast, axial images were obtained through the abdomen and pelvis by computed tomography. The study was performed with techniques to keep radiation dose as low as reasonably achievable, (ALARA). Individual dose reduction techniques using automated exposure control or adjustment of mA and/or kV according to the patient's size were employed. CLINICAL HISTORY: WEIGHT LOSS, NAUSEA, VOMITING X 6 MONTHS COMPARISON: 05/03/2020 FINDINGS: Abdomen: There is mild left base atelectasis or scar. The liver is normal in size and attenuation. The patient is status post cholecystectomy. There is no biliary ductal dilatation. The spleen is unremarkable. The adrenals are normal. The pancreas is unremarkable. The kidneys enhance appropriately. There is stable ectasia of the abdominal aorta measuring 2.9 cm. There is no free fluid or adenopathy. Pelvis: The appendix is not identified. There are areas of wall thickening at the hepatic flexure of the colon of uncertain etiology, neoplasm is not excluded. There is mild bladder wall thickening, likely inflammatory. There are postoperative changes near the symphysis pubis. There is no free fluid or adenopathy. IMPRESSION: Areas of wall thickening of the hepatic flexure of the colon, neoplasm is not excluded. Recommend correlation with colonoscopy. Reviewed, Interpreted and Dictated by Eddie Braswell III, MD Transcribed by Yudy Laureano Authenticated and [facility]
== END ==
PROVIDERS: PCP Internal Medicine; Visit Provider Internal Medicine Gastroenterology
DX: I71.4 Abdominal aortic aneurysm, without rupture (principal); R11.2 Nausea with vomiting, unspecified; R63.4 Abnormal weight loss; Z68.23 Body mass index [BMI] 23.0-23.9, adult
CPT/HCPCS: 74177; Q9967

== ENCOUNTER → 2022-06-13 13:00 | Outpatient (CLI) | payer OTHER, SELFPAY ==
[2022-06-13 15:27] LABS: Alanine Aminotransferase 12 U/L (12-78); Albumin Level 4.2 g/dl (3.5-5.0); Alkaline Phosphatase 87 U/L (38-126); Aspartate Amino Transferase 25 U/L (17-59); Bilirubin,Indirect 0.2 mg/dL (0.0-0.9); Bilirubin,Total 0.2 mg/dl (0.2-1.3); Bilirubin,Unconjugated 0.3 mg/dL (0.0-1.1); Cholesterol 130 mg/dl (140-200); HDL Cholesterol 43 mg/dl (40-60); Total Protein,Serum 6.5 g/dl (6.3-8.2); Triglycerides 142 mg/dl (30-150); VLDL Cholesterol 28 mg/dL (0-40)
[2022-06-13 15:38] LABS: Direct LDL Cholesterol 61.16 mg/dL (100-129)
== END ==
PROVIDERS: PCP Internal Medicine; Visit Provider Nurse Practitioner Family
DX: E78.2 Mixed hyperlipidemia (principal); I10 Essential (primary) hypertension; I25.810 Atherosclerosis of coronary artery bypass graft(s) without angina pectoris; I65.23 Occlusion and stenosis of bilateral carotid arteries; I73.9 Peripheral vascular disease, unspecified; Z72.0 Tobacco use; Z95.1 Presence of aortocoronary bypass graft
CPT/HCPCS: 36415; 80061; 80076

== ENCOUNTER → 2022-06-21 12:45 | Outpatient (CLI) | payer OTHER, SELFPAY ==
--- NOTE | 2022-06-21 12:48 | CA_ITS ---
FINAL REPORT TECHNIQUE: Color Doppler, duplex Doppler and baum scale sonography of the bilateral neck arterial vasculature was performed. Velocities were measured in the carotid arteries. Stenosis evaluation based on the validated velocity criteria. CLINICAL HISTORY: SUMEET,HTN,HX RT ENDARDECTOMY FINDINGS: The peak systolic velocity of the right common carotid artery is 121 cm/s. The peak systolic velocity of the right internal carotid artery is 102 cm/s and end diastolic velocity 10 cm/s. The ICA/CCA ratio is 0.84. A small amount of plaque is present. The right external carotid artery is patent. The right vertebral artery is patent with antegrade flow. The peak systolic velocity of the left common carotid artery is 119 cm/s. The peak systolic velocity of the left internal carotid artery is 147 cm/s and end diastolic velocity 35 cm/s. The ICA/CCA ratio is 1.23. A moderate to large amount of plaque is present. The left external carotid artery is patent.The left vertebral artery is patent with antegrade flow. IMPRESSION: Less than 50% bilateral carotid stenoses. Due to significant plaque in the left carotid artery consider correlation with CTA or MRA. Reviewed, Interpreted and Dictated by Eddie Braswell III, MD Transcribed by Valdemar Leong Authenticated and [facility]
== END ==
PROVIDERS: PCP Internal Medicine; Visit Provider Nurse Practitioner Family
DX: I65.23 Occlusion and stenosis of bilateral carotid arteries (principal)
CPT/HCPCS: 93880

== ENCOUNTER 2022-11-20 11:27 | Day surgery (SDC) | payer MEDICARE, OTHER, SELFPAY ==
[2022-10-30 14:36] VITALS: BMI 20.7
[2022-11-20] VITALS (8 sets, daily range): BP systolic 76–129; BP diastolic 23–60; PULSE 48–51; RESP 8–18; TEMP 36.6–36.9; O2SAT 95–100
--- NOTE | 2022-11-20 12:31 | EXP.ANES.CKL ---
[facility] Disclaimer: The information contained in this section may have been updated after the patient was seen, as this information can be updated by other users. Medical History Abdominal aortic aneurysm (AAA) CAD (coronary artery disease) Carotid artery stenosis Claudication of both lower extremities HLD (hyperlipidemia) HTN (hypertension) PAD (peripheral artery disease) Tobacco abuse Surgical History History of cholecystectomy History of coronary artery bypass graft History of hernia repair Status post carotid surgery Family History Other No significant family history Social History Smoking Status: Former smoker pack-years: 20 second hand exposure: No alcohol intake: never substance use type: denies use current occupational status: employed and retired Travel in the last 8 weeks: None household members: family housing: house lives independently: Yes marital status: single education level: high school current occupational exposures/hazards: No caffeine: Yes special april needs: No agree to transfusion: No do you feel safe at home: Yes victim of physical abuse: No victim of emotional abuse: No victim of sexual abuse: No would you like helpful sources: No [facility] Anesthesia Checklist Patient Identification Patient Identification: Arm Band and Verbal (Name & ) Structural Data Admitted From: Home Planned Operative Procedure/s: EGD Consent for Planned Operative Procedure(s) Verified: Yes NPO Status Verified Time NPO: 00:00 Additional verifications Anesthesia Reactions: No Airway Assessment C-Spine Mobility Assessed: Yes TMJ Mobility Assessed: Yes Dentition: Poor Dentition Neurological Assessment Level of Consciousness: Awake Hx Seizures: No Numbness or tingling in extremities: No Anesthesia Plan Anesthesia Risk discussed: Yes Anesthesia Plan: Verified ASA Class: III Anesthesia Type: MAC
--- NOTE | 2022-11-20 12:54 | HMH.SCOPE ---
Procedure: Date: 11/20/22 Patient Date of :: 1960 Procedure Performed:: EGD Indications:: GERD Performing Provider:: Chuy Carrasco MD Referring Provider:: Femi Lam MD Sedation:: See RN records Procedure:: The gastroscope was gently passed through the incisoral orifice into the oral cavity and under direct visualization the esophagus was intubated. The endoscope was passed down the esophagus, through the stomach, and into the duodenum. Color, texture, mucosa, and anatomy of the esophagus, stomach, and duodenum were carefully examined with the scope. Findings:: Oropharynx: normal Esophagus: normal. biopsies obtained EG Junction: intact at 40 cm Cardia: normal Fundus: normal Body: mild gastritis. biopsies obtained Antrum: normal Duodenal bulb: mild duodenitis. biopsies obtained Duodenum (second and third portion): normal Impression: Mild gastroduodenitis Recommendations:: Await pathology results Can use pantoprazole or pepcid as needed Complications:: None Estimated blood obtained (mL): 0
== END 2022-11-20 13:50 | disposition home or self-care (01) ==
PROVIDERS: PCP Internal Medicine; Visit Provider Internal Medicine
PROC: 0DJ08ZZ Inspection of Upper Intestinal Tract, Via Natural or Artificial Opening Endoscopic (ICD-10-PCS; CPT 43235; principal; 2022-11-20 12:30)
DX: K21.9 Gastro-esophageal reflux disease without esophagitis (principal); K29.90 Gastroduodenitis, unspecified, without bleeding
CPT/HCPCS: 43239; J2704

== ENCOUNTER → 2022-12-24 07:51 | Outpatient (CLI) | payer MEDICARE, OTHER, SELFPAY ==
--- NOTE | 2022-12-24 08:04 | CT_ITS ---
FINAL REPORT CLINICAL HISTORY: SUMEET COMPARISON: June 2020 FINDINGS: Thin section axial CT with IV contrast supplemented with multiplanar reconstruction under CT angiogram protocol. This study was performed with techniques to keep radiation doses as low as reasonably achievable (ALARA). Individualized dose reduction techniques using automated exposure control or adjustment of mA and/or kV according to the patient''s size were employed. NASCET criteria was utilized during interpretation. There has been interval improvement in the stenosis of the proximal right ICA consistent with interval endarterectomy. There is persistent moderate stenosis of the proximal left ICA with 50% diameter narrowing. There is been interval placement of a left subclavian stent that is patent. The vertebral arteries are patent and codominant. There are mild stenoses of the bilateral cavernous ICAs, stable from prior. Remaining intracranial vasculature is unremarkable. IMPRESSION: Interval postoperative change from right endarterectomy with improvement in right PEDRO stenosis. Stable left ICA stenosis. New, patent left subclavian stent. Reviewed, Interpreted and Dictated by Eddie Braswell III, MD Transcribed by Valdemar Leong Authenticated and [facility]
[2022-12-24 08:26] LABS: Blood Urea Nitrogen 15 mg/dl (9-20); Estimated Glomerular Filt Rate 56 ml/min (>60); GFR (African American) 67 ML/MIN (>60)
== END ==
PROVIDERS: PCP Internal Medicine; Visit Provider Nurse Practitioner Family
DX: I65.23 Occlusion and stenosis of bilateral carotid arteries (principal)
CPT/HCPCS: 36415; 70498; 82565; 84520; Q9967

== ENCOUNTER → 2023-03-15 11:14 | Outpatient (CLI) | payer MEDICARE, SELFPAY ==
--- NOTE | 2023-03-15 11:18 | XR_ITS ---
PROCEDURE INFORMATION: Exam: XR Left Ankle Exam date and time: 03/15/2023 11:19 AM Age: 62 years old Clinical indication: Pain; Ankle; Left TECHNIQUE: Imaging protocol: Radiologic exam of the left ankle. Views: 3 or more views. COMPARISON: US ARTERIAL LOWER EXT REST 03/10/2020 12:50 PM FINDINGS: Bones/joints: No acute fracture or malalignment. Joint spaces are maintained. Soft tissues: Normal. IMPRESSION: No acute fracture or malalignment.
== END ==
PROVIDERS: PCP Internal Medicine; Visit Provider Internal Medicine
DX: M25.572 Pain in left ankle and joints of left foot (principal)
CPT/HCPCS: 73610

== ENCOUNTER → 2023-06-12 14:37 | Outpatient (CLI) | payer MEDICARE, OTHER, SELFPAY ==
[2023-06-12 15:44] LABS: Alanine Aminotransferase 17 U/L (12-78); Albumin Level 4.4 g/dl (3.5-5.0); Alkaline Phosphatase 60 U/L (38-126); Aspartate Amino Transferase 24 U/L (17-59); Bilirubin,Direct 0.2 mg/dl (0.0-0.4); Bilirubin,Indirect 0.4 mg/dL (0.0-0.9); Bilirubin,Total 0.6 mg/dl (0.2-1.3); Bilirubin,Unconjugated 0.5 mg/dL (0.0-1.1); Chol/HDL Ratio 2.9 (1-3.5); Cholesterol 108 mg/dl (140-200); HDL Cholesterol 37 mg/dl (40-60); Total Protein,Serum 6.8 g/dl (6.3-8.2); Triglycerides 196 mg/dl (30-150); VLDL Cholesterol 39 mg/dL (0-40)
[2023-06-12 15:55] LABS: Direct LDL Cholesterol 50.67 mg/dL (100-129)
== END ==
PROVIDERS: PCP Internal Medicine; Visit Provider Nurse Practitioner
DX: E78.5 Hyperlipidemia, unspecified (principal); I10 Essential (primary) hypertension; I11.9 Hypertensive heart disease without heart failure; I25.10 Atherosclerotic heart disease of native coronary artery without angina pectoris; I65.29 Occlusion and stenosis of unspecified carotid artery; I73.9 Peripheral vascular disease, unspecified; Z72.0 Tobacco use; Z95.1 Presence of aortocoronary bypass graft; Z98.890 Other specified postprocedural states; I71.40 Abdominal aortic aneurysm, without rupture, unspecified
CPT/HCPCS: 36415; 80061; 80076

== ENCOUNTER → 2023-08-15 15:55 | Outpatient (CLI) | payer MEDICARE, SELFPAY ==
--- NOTE | 2023-08-15 15:57 | ECG_ITS ---
APPROVED REPORT Exam: Resting ECG HR:47 bpm ECG Measurements Heart Rate 47 AXES MO 188 P 19 QRSd 98 QRS 74 QT 482 T -13 QTc 444 Conclusion SINUS BRADYCARDIA INDETERMINATE AXIS MODERATE ST DEPRESSION [0.05+ mV ST DEPRESSION] ABNORMAL QRS-T ANGLE [QRS-T AXIS DIFFERENCE > 60] ABNORMAL ECG UNCONFIRMED REPORT Electronically signed by : Angel Herman MD 08/15/2023 16:27:53
[2023-08-15 17:16] LABS: Chloride 101 mmol/L (98-107); Potassium 4.6 mmoL/L (3.5-5.1); Sodium 141 mmol/L (136-145)
[2023-08-15 17:19] LABS: Anion Gap 13.6 mEq/L (5-15); Blood Urea Nitrogen 16 mg/dl (9-20); Calcium 9.3 mg/dl (8.4-10.2); Carbon Dioxide 31 mmol/L (22.0-30.0); Estimated Glomerular Filt Rate 67 ml/min (>60); GFR (African American) 82 ML/MIN (>60); Glucose 96 mg/dl (74-100)
== END ==
PROVIDERS: PCP Internal Medicine; Visit Provider Surgery
DX: L98.9 Disorder of the skin and subcutaneous tissue, unspecified (principal); Z01.818 Encounter for other preprocedural examination
CPT/HCPCS: 36415; 80048; 93005

== ENCOUNTER 2023-08-18 11:55 | Day surgery (SDC) | payer MEDICARE, SELFPAY ==
[2023-08-18] VITALS (9 sets, daily range): BP systolic 164–201; BP diastolic 75–104; PULSE 61–73; RESP 12–18; TEMP 36.2–36.5; O2SAT 94–100; BMI 21.2
--- NOTE | 2023-08-18 15:02 | P.PNANES_ITS ---
[facility] Disclaimer: The information contained in this section may have been updated after the patient was seen, as this information can be updated by other users. Medical History Abdominal aortic aneurysm (AAA) CAD (coronary artery disease) Carotid artery stenosis 07/17/2020 [facility]OS[facility]IN greater than 90% LICA less than 50% Claudication of both lower extremities HLD (hyperlipidemia) HTN (hypertension) PAD (peripheral artery disease) Tobacco abuse Surgical History History of cholecystectomy History of colonoscopy History of coronary artery bypass graft 05/19/2020 SEKELA LEVY to LAD SVG to OM1 SVG to PDA History of hernia repair umbilical Status post carotid surgery Family History Other Cancer Coronary artery disease Social History (Updated 08/18/23 @ 12:23 by Ashwin Gonzalez RN) Smoking Status: Former smoker second hand exposure: No alcohol intake: never substance use type: denies use current occupational status: retired Travel in the last 8 weeks: None household members: family housing: house lives independently: Yes marital status: single education level: high school current occupational exposures/hazards: No caffeine: Yes special april needs: No agree to transfusion: No do you feel safe at home: Yes victim of physical abuse: No victim of emotional abuse: No victim of sexual abuse: No would you like helpful sources: No [facility] Anesthesia Checklist Patient Identification Patient Identification: Arm Band, Family and Verbal (Name & ) Structural Data Admitted From: Home Planned Operative Procedure/s: Excision of chest wall lesions Consent for Planned Operative Procedure(s) Verified: Yes Verified Documents: Surgical Consent and History and Physical NPO Status Verified Time NPO: 23:30 Chart Verification Results Verified: BMP and ECG Additional verifications Patient : No Anesthesia Reactions: No Hx Blood Transfusions: No Blood Transfusion Reaction: No Cephalosporin Allergy: No Cardiovascular Assessment Heart Sounds: S1 & S2 Pulse Rhythm: Irregular Peripheral Edema: No Airway Assessment Mallampati Score:: Class II C-Spine Mobility Assessed: Yes (FROM) TMJ Mobility Assessed: Yes Dentition: Poor Dentition (Nothing loose per pt.) Neurological Assessment Level of Consciousness: Awake, Alert, Appropriate and Follows Commands Hx Seizures: No Numbness or tingling in extremities: No Anesthesia Plan Anesthesia Risk discussed: Yes Anesthesia Plan: Verified ASA Class: III Anesthesia Type: General
--- NOTE | 2023-08-18 16:08 | P.OP_ITS ---
Date of procedure: 08/18/23 Pre-op Diagnosis:: Atypical skin lesion right clavicle Suspicious skin lesion left clavicle Post-op Diagnosis:: Same Procedure performed:: 1. Reexcision of atypical skin lesion overlying right clavicle (excisional length 5.5 cm) with intermediate complexity closure 2. Limited excision biopsy suspicious skin lesion left subclavicular (excisional length 3.0 cm) with intermediate complexity closure Surgeon:: Eddie Horan MD Anesthesia: LMA Estimated blood loss (mL): 3 Clinical Note:: Patient was initially seen in the office on 08/14/2023. He is a 63-year-old male referred by Dr. Lam for reexcision of a suspicious lesion on the right upper chest. He was seen in the office as a consultation and I had him return the following day after I have obtained his pathology and records from Dr. Lam and had Dr. Lam available to confirm the location of the lesions. Dr. Lam had noted 3 lesions on the right upper chest area. There were felt to be probable seborrheic keratosis. There was 1 cm hyperpigmented lesion and a 1 cm lesion near the collarbone there was also a smaller lesion more medially along the collarbone which was removed but not sent for pathology. The lesion over the collarbone more laterally actually returned as compound melanocytic proliferation exhibiting severe cytologic atypia extending to the peripheral edges. 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 When he was seen in the office he also had a suspicious pigmented lesion medially and inferior to the left clavicle area. Plan was made for excisional biopsy of this as well at the time. Operative findings:: Skin lesions as noted Operative note:: Consent was obtained patient was taken to the operating room. He was given preoperative intravenous antibiotic. In the operating room he was placed in a supine position. General anesthesia was induced via LMA. Neck and upper chest was prepped and draped in the standard surgical fashion. Attention was first turned to the atypical excised lesion overlying the right clavicle. Borderline of the scar was marked with a skin marker. Planned elliptical incision was then marked with at least 5 mm margins. Local anesthetic was infiltrated. Full- thickness skin incision was made. Skin ellipse was dissected free from the underlying subcutaneous tissues using electrocautery. Lesion was marked with a short suture superior margin and a long suture at the lateral margin. Hemostasis was achieved. Dermal tissues were reapproximated with interrupted 3- 0 Vicryl. Skin was closed with interrupted 4-0 nylon. Overall length of the incision was 5.5 cm. Attention was then turned to the pigmented suspicious lesion left medial inferior clavicle. There were 2 adjacent lesions. Skin was marked with a skin marker for planned limited excisional biopsy. Full-thickness skin incision was made with a clean fresh #15 blade scalpel. Skin ellipse was dissected free from the underlying subcutaneous tissues sharply. Once again short suture jim superior margin and long suture jim lateral margin. It was sent as specimen. Dermal tissues were reapproximated with several interrupted horizontal mattress Vicryl sutures. Skin was closed with 5-0 plain gut. Clean dry sterile dressings were applied. Condition: stable Disposition: PACU Complications:: None immediately apparent
--- NOTE | 2023-08-18 16:15 | EXP.ANES.I ---
[facility] Anesthesia Record Part I Anesthesia Record I Intake, IV Amount: 800 Hydration: Adequate Estimated blood loss (mL): 10 Urine output (mL): 0 Blood Products used (#): none Blood Pressure: 166/92 SaO2: 94 Pulse Rate: 73 Airway Patency: Patent Respiratory Rate: 14 Temperature: 97.7 F Patient is:: Awake and Stable Stable to PACU at:: 16:15
--- NOTE | 2023-08-19 12:59 | P.PNANES_ITS ---
[facility] Anesthesia Record Part II Anesthesia Record Part II Discharge Time: 16:40 Destination: Surgical Day Care (OP Surgery) PACU nurse assessment reviewed?: Yes Patient Condition:: Good Anesthesia Complications:: None Swallowing reflex intact?: Yes Airway Patency: Patent Cyanosis?: No Blood Pressure: 180/104 SaO2: 97 Respiratory Rate: 12 Pulse Rate: 66 Temperature: 97.6 F Mental Status: Alert & Oriented Pain level:: 0 Nausea and/or vomitting:: None Intake, IV Amount: 0 Hydration: Adequate
[2023-08-19 13:00] VITALS: BP 180/104; PULSE 66; RESP 12; TEMP 36.4; O2SAT 97
== END 2023-08-18 17:15 | disposition home or self-care (01) ==
PROVIDERS: PCP Internal Medicine; Visit Provider Surgery
PROC: (CPT 11106; principal; 2023-08-18 13:30)
DX: D18.01 Hemangioma of skin and subcutaneous tissue (principal); L98.9 Disorder of the skin and subcutaneous tissue, unspecified
CPT/HCPCS: 11106; 11406; 12034; 88305

== ENCOUNTER 2023-10-28 11:45 | Outpatient (POV) | payer MEDICARE, SELFPAY | END 2023-10-28 23:59 | disposition home or self-care (01) | LOC: SC 11:46 | PROVIDERS: PCP Internal Medicine; Visit Provider Dermatology | DX: Z00.00 Encounter for general adult medical examination without abnormal findings (principal) ==

== ENCOUNTER 2023-12-24 12:41 | Outpatient (CLI) | payer MEDICARE, SELFPAY ==
--- NOTE | 2023-12-24 12:51 | CA_ITS ---
APPROVED REPORT EXAM: Comprehensive 2D, Doppler, and color-flow Echocardiogram Bag Printer: Vi Fierro CRT Ht: 5 ft 8 in Wt: 144lbs BSA: 1.78 BP: 128/81 mmHg Indications: AAA, CABG, smoker, HTN, HLD 2D Dimensions LA Volume 51.80 mL LA Volume Index 29.10 mL/m2 (M/F) 16-34 M-Mode Dimensions RVDd 3.13 cm (0.9-2.6) LA Diam 4.06 cm (1.9-4.0) LVDd 3.87 cm (3.5-5.7) LVDs 2.65 cm (3.5-5.7) IVSd 1.63 cm (0.6-1.1) PWd 1.44 cm (0.6-1.1) EF (Teich) 60.10% FS 31.50% EDV (Teich) 64.70 mL ESV (Teich) 25.80 mL LV Diastology E Decel Time 273 (160-240 msec) E/A Ratio 1.3 MED A' 8.10 cm/s LAT A' 9.00 cm/s Aortic Valve AI PHT 653.00 ms AO Peak GR. 5.60 mmHg Mitral Valve MV E Max Cezar. 89.0 (40-130 cm/s) MV A Velocity 71.0 (40-130 cm/s) E/A Ratio 1.25 MV PHT 80.0 ms Pulmonary Valve PV Peak Velocity 144.0 (50-150 cm/s) Tricuspid Valve TR P. Velocity 228.00 cm/s RAP Estimate 10.00 mmHg RVSP 30.70 mmHg Left Ventricle The left ventricle is normal size. The left ventricular systolic function is low normal. Proximal septal thickening is noted. There is normal LV segmental wall motion. Transmitral Doppler flow pattern suggests impaired LV relaxation. LVEF is 50%. Right Ventricle The right ventricle is normal size. The right ventricular systolic function is normal. Atria The left atrium size is normal. The right atrium size is normal. There is no Doppler evidence of interatrial shunt. Aortic Valve The aortic valve is mildly thickened. There is no aortic valvular stenosis. Mild aortic regurgitation. Mitral Valve The mitral valve leaflets are mildly thickened. No evidence of mitral valve stenosis. Mild mitral regurgitation. Tricuspid Valve The tricuspid valve leaflets are thin and pliable. Mild tricuspid regurgitation. RVSP is 20-25 mmHg. Pulmonic Valve The pulmonary valve is normal in structure. Trace pulmonic regurgitation. Great Vessels The aortic root is normal in size. The ascending aorta is mildly dilated, measuring 3.9 cm in diameter. The IVC is not well-visualized. Pericardium There is no pericardial effusion. Other Information Study Quality: Fair Conclusion Low normal LV systolic function. Normal RV size and function. Mild AI, mild MR, mild TR. Electronically signed by : Jaclyn Narvaez MD 12/26/2023 23:21:26
== END 2023-12-24 23:59 ==
PROVIDERS: PCP Internal Medicine; Visit Provider Nurse Practitioner
DX: R06.09 Other forms of dyspnea (principal); I25.10 Atherosclerotic heart disease of native coronary artery without angina pectoris
CPT/HCPCS: 93306

== ENCOUNTER 2024-01-19 08:12 | Outpatient (CLI) | payer MEDICARE, SELFPAY ==
--- NOTE | 2024-01-19 08:17 | US_ITS ---
FINAL REPORT CLINICAL HISTORY: AAA 3.9cm on ECHO COMPARISON: None FINDINGS: ULTRASOUND ABDOMINAL AORTA Findings: Sagittal and transverse images with Doppler exam was performed of the aorta. The upper abdominal aorta measures up to 3.8 cm. Moderate plaque disease and mural thrombus are noted. Proximal iliac vessels are normal in caliber. Aorta is patent by Doppler exam without gross stenosis. IMPRESSION: 3.8 cm upper abdominal aortic aneurysm with moderate plaque and mural thrombus. CT would be helpful for further evaluation as clinically indicated. Reviewed, Interpreted and Dictated by Eddie Braswell III, MD Transcribed by Amarilys Geiger Authenticated and [facility]
== END 2024-01-19 23:59 | disposition home or self-care (01) ==
LOC: RAD 08:14
PROVIDERS: PCP Internal Medicine; Visit Provider Nurse Practitioner
DX: I71.40 Abdominal aortic aneurysm, without rupture, unspecified (principal)
CPT/HCPCS: 76770

== ENCOUNTER 2024-06-14 14:39 | Outpatient (CLI) | payer MEDICARE, SELFPAY ==
--- NOTE | 2024-06-14 14:43 | XR_ITS ---
FINAL REPORT CLINICAL HISTORY: Foot Pain FINDINGS: Right foot Three views were obtained. There is no acute fracture or dislocation. The joint spaces appear normal. No soft tissue abnormality is identified. IMPRESSION: No acute process. Reviewed, Interpreted and Dictated by Earle Wu MD Transcribed by Yudy Laureano Authenticated and [facility]
--- NOTE | 2024-06-14 14:43 | XR_ITS ---
FINAL REPORT CLINICAL HISTORY: Foot Pain FINDINGS: Left foot Three views were obtained. There is no acute fracture or dislocation. The joint spaces appear normal. No soft tissue abnormality is identified. There is a tiny plantar spur. IMPRESSION: No acute process. Reviewed, Interpreted and Dictated by Earle Wu MD Transcribed by Yudy Laureano Authenticated and [facility]
== END 2024-06-14 23:59 | disposition home or self-care (01) ==
LOC: RAD 14:40
PROVIDERS: PCP Internal Medicine; Visit Provider Podiatrist
DX: M79.671 Pain in right foot (principal); M79.672 Pain in left foot
CPT/HCPCS: 73630

== ENCOUNTER 2024-08-13 09:05 | Outpatient (CLI) | payer MEDICARE, SELFPAY ==
--- NOTE | 2024-08-13 09:06 | CT_ITS ---
FINAL REPORT TECHNIQUE: Pre-and postcontrast images of the abdomen were performed by computed tomography. Extensive 3-D reconstruction images were performed. A CTA was performed. This study was performed with techniques to keep radiation doses as low as reasonably achievable (ALARA). Individualized dose reduction techniques using automated exposure control or adjustment of mA and/or kV according to the patient''s size were employed. CLINICAL HISTORY: AAA COMPARISON: 05/03/2020 FINDINGS: ABDOMEN: The gallbladder is absent. Precontrast images demonstrate no evidence of nephrolithiasis. No adrenal masses are identified. The liver, spleen and pancreas are unremarkable. The GI tract is without acute abnormality. There is no evidence of lymphadenopathy or ascites. No acute osseous abnormality identified. CTA: There is an abdominal aortic aneurysm infrarenal in location measuring 3.4 cm, was 2.7 cm. There is no evidence of dissection. The SMA, celiac axis, and RICARDO are patent. The renal arteries are patent bilaterally. There is calcification at the origin of the bilateral renal arteries without significant stenosis. The common iliac and proximal portion of the external and internal iliac arteries are normal. IMPRESSION: Abdominal aortic aneurysm, slightly increased since prior. Reviewed, Interpreted and Dictated by Shruti Gonzalez MD Transcribed by Yudy Laureano Authenticated and [facility]
[2024-08-13 09:43] LABS: Blood Urea Nitrogen 18 mg/dl (9-20); Estimated Glomerular Filt Rate 51 ml/min (>60); GFR (African American) 62 ML/MIN (>60)
[2024-08-13] MEDS: 0.9 % SODIUM CHLORIDE 50 ML VIAL IV (10:09)
[2024-08-13] MEDS: SODIUM CHLORIDE 0.9% 10ML SYR (RAD ONLY) 10 ML IV (10:09)
[2024-08-13] MEDS: IOPAMIDOL-370 (76%);100ML BOTTLE 80 ML IV (10:09)
== END 2024-08-13 23:59 | disposition home or self-care (01) ==
PROVIDERS: PCP Internal Medicine; Visit Provider Physician Assistant
DX: I71.40 Abdominal aortic aneurysm, without rupture, unspecified (principal)
CPT/HCPCS: 36415; 74175; 82565; 84520; Q9967